=== PATIENT | female | born 1985 | race Caucasian/White ===

== ENCOUNTER 2019-04-27 22:56 | Emergency (ER) | payer OTHER ==
[~2019-04-27] VITALS: Ht 162.6 cm; Wt 127.0 kg
[2019-04-28] MEDS ORDERED: CITA20 PO (00:53)
[2019-04-28] MEDS ORDERED: Loratadine10 MG PO (00:54)
[2019-04-28] MEDS ORDERED: Provera10 MG PO (00:54)
[2019-04-28] MEDS ORDERED: Flonase 0.05% N16 GM (00:54)
[2019-04-28] MEDS ORDERED: THERA-D2000 UNIT PO (00:54)
[2019-04-28] MEDS ORDERED: MULTIPLE VITAM1 EACH PO (00:55)
[2019-04-28] MEDS ORDERED: MONTELUKAST SOD10 M1 PO (00:55)
[2019-04-28] MEDS ORDERED: MAGNESIUM250 MG PO (00:55)
[2019-04-28] MEDS ORDERED: BENZ100A PO (01:00)
[2019-04-28] MEDS ORDERED: Zithromax250 MG PO (01:00)
== END 2019-04-28 01:21 | disposition home or self-care (01) ==
LOC: ER 22:56
DX: J45.901 Unspecified asthma with (acute) exacerbation (principal); K21.9 Gastro-esophageal reflux disease without esophagitis; Z88.0 Allergy status to penicillin; Z88.8 Allergy status to other drugs, medicaments and biological substances
CPT/HCPCS: 71046; 94640; 99283-25

== ENCOUNTER → 2021-03-06 | Outpatient (CLI) | payer OTHER ==
[~2021-03-06] MED LIST: BENZ100A PO; CITA20 PO; Flonase 0.05% N16 GM; Loratadine10 MG PO; MAGNESIUM250 MG PO; MONTELUKAST SOD10 M1 PO; MULTIPLE VITAM1 EACH PO; Provera10 MG PO; THERA-D2000 UNIT PO; Zithromax250 MG PO
== END | disposition home or self-care (01) ==
LOC: LAB SHORT 09:39
DX: R30.9 Painful micturition, unspecified (principal)
CPT/HCPCS: 87077; 87086; 87186

== ENCOUNTER 2021-07-20 10:06 | Emergency (ER) | payer OTHER ==
[~2021-07-20] VITALS: Ht 162.6 cm; Wt 140.6 kg
[2021-07-20] MEDS ORDERED: [UNRECOGNIZED DRUG - OTHER] PO (10:33)
[2021-07-20] MEDS ORDERED: ZEBUTAL PO (12:07)
== END 2021-07-20 12:24 | disposition home or self-care (01) ==
LOC: ER 10:06
DX: G43.909 Migraine, unspecified, not intractable, without status migrainosus (principal); J45.909 Unspecified asthma, uncomplicated; Z88.0 Allergy status to penicillin; Z88.1 Allergy status to other antibiotic agents; Z88.8 Allergy status to other drugs, medicaments and biological substances
CPT/HCPCS: J1200; J1885; J2765; J7030

== ENCOUNTER 2021-12-19 20:19 | Emergency (ER) | payer OTHER ==
[~2021-12-19] VITALS: Ht 162.6 cm; Wt 140.6 kg
[~2021-12-19 20:19] MED LIST changes: +ZEBUTAL PO; +[UNRECOGNIZED DRUG - OTHER] PO
[2021-12-19] MEDS ORDERED: PRED20 PO (22:46)
[2021-12-19] MEDS ORDERED: NAPR500 PO (22:46)
== END 2021-12-19 23:04 | disposition home or self-care (01) ==
LOC: ER 20:19
DX: M77.12 Lateral epicondylitis, left elbow (principal); J45.909 Unspecified asthma, uncomplicated; K21.9 Gastro-esophageal reflux disease without esophagitis; Z88.0 Allergy status to penicillin; Z88.1 Allergy status to other antibiotic agents; Z88.8 Allergy status to other drugs, medicaments and biological substances; Z79.899 Other long term (current) drug therapy
CPT/HCPCS: 73080; A9270

== ENCOUNTER → 2023-04-07 | Outpatient (CLI) | payer OTHER ==
[~2023-04-07] MED LIST changes: +NAPR500 PO; +PRED20 PO
== END | disposition home or self-care (01) ==
LOC: LAB SHORT 17:42 → LAB 17:42
DX: R30.0 Dysuria (principal); R35.0 Frequency of micturition
CPT/HCPCS: 87077; 87086; 87186

== ENCOUNTER → 2023-11-19 | Outpatient (CLI) | payer OTHER ==
[2023-11-19 15:00] LABS: Bacterial Vaginosis PCR Negative (NEGATIVE); Candida Group, PCR NOT DETECTED (NOT DETECT); Candida glabrata-krusei, PCR NOT DETECTED (NOT DETECT)
[2023-11-19 15:34] LABS: Chlamydia Trachomatis Urine NOT DETECTED (NOT DETECT); Neisseria Gonorrhoea Urine NOT DETECTED (NOT DETECT)
== END ==
LOC: LAB 11:51 → LAB SHORT 11:51
PROVIDERS: Nurse Practitioner Family
DX: N92.6 Irregular menstruation, unspecified (principal)
CPT/HCPCS: 87481; 87491; 87591; 87661; 87801

== ENCOUNTER → 2023-12-09 | Outpatient (CLI) | payer OTHER ==
[2023-12-09 15:24] LABS: Bacterial Vaginosis PCR Negative (NEGATIVE); Candida Group, PCR NOT DETECTED (NOT DETECT); Candida glabrata-krusei, PCR NOT DETECTED (NOT DETECT)
== END ==
LOC: LAB SHORT 09:08 → LAB 09:08
PROVIDERS: Nurse Practitioner Family
DX: R39.15 Urgency of urination (principal)
CPT/HCPCS: 87481; 87661; 87801

== ENCOUNTER 2024-05-09 20:18 | Emergency (ER) | payer OTHER ==
[~2024-05-09] VITALS: Ht 160 cm; Wt 136.1 kg
[2024-05-09 20:28] VITALS: BP 144/105
[2024-05-09] MEDS ORDERED: Ketorolac Tromethamine 15mg Vial IV ONE (21:25)
[2024-05-09] MEDS ORDERED: DiphenhydrAMINE HCl 50 MG/ML 1ML Vial IV ONE (21:25)
[2024-05-09] MEDS ORDERED: Prochlorperazine Edisylate 10 mg Vial IV ONE (21:25)
[2024-05-09] MEDS ORDERED: NS 1,000 ML IV SCH (21:25)
== END 2024-05-09 22:30 | disposition home or self-care (01) ==
LOC: ER 20:18
DX: G43.909 Migraine, unspecified, not intractable, without status migrainosus (principal); K21.9 Gastro-esophageal reflux disease without esophagitis; Z88.0 Allergy status to penicillin; Z88.8 Allergy status to other drugs, medicaments and biological substances; Z79.899 Other long term (current) drug therapy; Z79.3 Long term (current) use of hormonal contraceptives
CPT/HCPCS: 96374; 96375; 99283-25; J0780; J1200; J1885; J7030

== ENCOUNTER 2024-05-21 02:06 | Emergency (ER) | payer OTHER ==
[~2024-05-21] VITALS: Ht 160 cm; Wt 136.1 kg
[2024-05-21 03:33] LABS: Source, Urine Clean Catch
[2024-05-21 03:40] LABS: Bilirubin, Urine Neg (Neg); Blood, Urine Neg (Neg); Glucose Qualitative, Urine Neg (Neg); Ketones, Urine Neg (Neg); Leukocyte Esterase, Urine 1+ (Neg); Nitrite, Urine Pos (Neg); Protein, Urine 2+ (Neg); Urobilinogen, Urine 1+ (Normal)
[2024-05-21 04:12] LABS: Influenza A, PCR NEGATIVE (NEGATIVE); Influenza B, PCR NEGATIVE (NEGATIVE); Resp Syncytial Virus, PCR NEGATIVE (NEGATIVE); SARS-Cov-2 (COVID-19) PCR, MMC NEGATIVE (NEGATIVE)
[2024-05-21 04:52] LABS: Appearance, Urine Clear (Clear); Color, Urine Yellow (P-Yellow)
[2024-05-21 04:53] LABS: Bacteria Mod /hpf; Red Blood Cells, Urine 0-2 /hpf (0-2); Squamous Epithelial Cells Mod /hpf (Few); White Blood Cells, Urine 0-2 /hpf (0-5)
[2024-05-21] MEDS ORDERED: Ondansetron 4 MG SoluTab SL ONE (05:35)
[2024-05-21] MEDS ORDERED: NS 1,000 ML IV SCH (06:00)
[2024-05-21 06:38] LABS: BASOPHILS ABSOLUTE AUTO 0.03 K/mm3 (0.00-0.23); BASOPHILS PERCENT AUTO 0 % (0-2); EOSINOPHILS ABSOLUTE AUTO 0.09 K/mm3 (0.00-0.68); EOSINOPHILS PERCENT AUTO 1 % (0-6); Hematocrit 46.1 % (33.0-51.0); Hemoglobin 14.8 g/dL (11.5-16.0); IMMATURE GRAN ABSOLUTE AUTO 0.06 K/mm3 (0.00-0.10); IMMATURE GRAN PERCENT AUTO 0 % (0-1); LYMPHOCYTES ABSOLUTE AUTO 1.21 K/mm3 (0.84-5.20); LYMPHOCYTES PERCENT AUTO 9 % (21-46); MONOCYTES ABSOLUTE AUTO 0.47 K/mm3 (0.16-1.47); MONOCYTES PERCENT AUTO 3 % (4-13); Mean Corpuscular HGB 25.3 pg (26.0-34.0); Mean Corpuscular HGB Conc 32.1 g/dL (31.5-36.5); Mean Corpuscular Volume 79 fL (80-100); Mean Platelet Volume 8.8 fL (9.1-12.4); NEUTROPHILS ABSOLUTE AUTO 12.35 K/mm3 (1.96-9.15); NEUTROPHILS PERCENT AUTO 87 % (41-73); Platelet Count 431 K/mm3 (150-400); RDW Coefficient Variation 14.8 % (11.7-14.2); RDW Standard Deviation 42.2 fL (35.1-46.3); Red Blood Cell Count 5.84 M/mm3 (3.80-5.20); White Blood Cell Count 14.21 K/mm3 (4.00-11.30)
[2024-05-21 07:00] LABS: Albumin, Blood 3.9 g/dL (3.4-5.0); Albumin/Globulin Ratio 0.9 (0.8-1.8); Bilirubin, Total 0.6 mg/dL (0.1-1.0); Bun/Creatinine Ratio 22.8 (12.0-20.0); Calcium, Blood 8.7 mg/dL (8.5-10.1); Creatinine, Blood 0.75 mg/dL (0.40-1.00); Globulin, Blood 4.3 g/dL (2.2-4.0); Total Protein, Blood 8.2 g/dL (6.4-8.2)
[2024-05-21] MEDS ORDERED: ONDA4ODT MM (07:04)
[2024-05-21] MEDS ORDERED: Ketorolac Tromethamine 30mg Vial IV ONE (07:05)
[2024-05-21 07:14] VITALS: BP 147/85
== END 2024-05-21 07:21 | disposition home or self-care (01) ==
LOC: ER 02:06
PROVIDERS: Emergency Medicine
DX: R10.13 Epigastric pain (principal); E86.0 Dehydration; R11.2 Nausea with vomiting, unspecified; D72.829 Elevated white blood cell count, unspecified; Z88.0 Allergy status to penicillin; Z88.1 Allergy status to other antibiotic agents; Z88.8 Allergy status to other drugs, medicaments and biological substances; Z79.899 Other long term (current) drug therapy; Z79.3 Long term (current) use of hormonal contraceptives
CPT/HCPCS: 0241U; 80053; 81001; 81025; 83605; 83690; 85025; 87086; 96374; 99284-25; A9270; J1885; J7030

== ENCOUNTER → 2024-06-14 | Outpatient (CLI) | payer OTHER ==
[~2024-06-14] MED LIST changes: +ONDA4ODT MM
[2024-06-15 11:08] LABS: Bacterial Vaginosis PCR Negative (NEGATIVE); Candida Group, PCR NOT DETECTED (NOT DETECT); Candida glabrata-krusei, PCR NOT DETECTED (NOT DETECT)
== END | disposition home or self-care (01) ==
LOC: LAB 15:35 → LAB SHORT 15:35
PROVIDERS: Nurse Practitioner Family
DX: R35.0 Frequency of micturition (principal)
CPT/HCPCS: 81515; 87086

== ENCOUNTER 2024-08-02 04:20 | Emergency (ER) | payer OTHER ==
[~2024-08-02] VITALS: Ht 162.6 cm; Wt 136.1 kg
[2024-08-02] MEDS ORDERED: Morphine Sulfate 4 MG/1 ML Injection IV ONE (08:05)
[2024-08-02] MEDS ORDERED: Ketorolac Tromethamine 30mg Vial IV ONE (08:05)
[2024-08-02 08:41] LABS: Source, Urine Clean Catch
[2024-08-02 08:44] LABS: BASOPHILS ABSOLUTE AUTO 0.03 K/mm3 (0.00-0.23); BASOPHILS PERCENT AUTO 0 % (0-2); EOSINOPHILS ABSOLUTE AUTO 0.19 K/mm3 (0.00-0.68); EOSINOPHILS PERCENT AUTO 3 % (0-6); Hematocrit 42.1 % (33.0-51.0); Hemoglobin 13.6 g/dL (11.5-16.0); IMMATURE GRAN ABSOLUTE AUTO 0.02 K/mm3 (0.00-0.10); IMMATURE GRAN PERCENT AUTO 0 % (0-1); LYMPHOCYTES ABSOLUTE AUTO 3.66 K/mm3 (0.84-5.20); LYMPHOCYTES PERCENT AUTO 47 % (21-46); MONOCYTES ABSOLUTE AUTO 0.53 K/mm3 (0.16-1.47); MONOCYTES PERCENT AUTO 7 % (4-13); Mean Corpuscular HGB 25.4 pg (26.0-34.0); Mean Corpuscular HGB Conc 32.3 g/dL (31.5-36.5); Mean Corpuscular Volume 79 fL (80-100); Mean Platelet Volume 9.3 fL (9.1-12.4); NEUTROPHILS ABSOLUTE AUTO 3.29 K/mm3 (1.96-9.15); NEUTROPHILS PERCENT AUTO 43 % (41-73); Platelet Count 373 K/mm3 (150-400); RDW Coefficient Variation 14.8 % (11.7-14.2); RDW Standard Deviation 42.1 fL (35.1-46.3); Red Blood Cell Count 5.35 M/mm3 (3.80-5.20); White Blood Cell Count 7.72 K/mm3 (4.00-11.30)
[2024-08-02 08:51] LABS: Appearance, Urine Clear (Clear); Bilirubin, Urine Neg (Neg); Blood, Urine Neg (Neg); Color, Urine Yellow (P-Yellow); Glucose Qualitative, Urine Neg (Neg); Ketones, Urine Neg (Neg); Leukocyte Esterase, Urine 1+ (Neg); Nitrite, Urine Neg (Neg); Protein, Urine 1+ (Neg); Urobilinogen, Urine NORM (Normal)
[2024-08-02 09:00] LABS: Albumin, Blood 3.5 g/dL (3.4-5.0); Albumin/Globulin Ratio 0.8 (0.8-1.8); Bilirubin, Total 0.2 mg/dL (0.1-1.0); Bun/Creatinine Ratio 21.6 (12.0-20.0); Calcium, Blood 8.2 mg/dL (8.5-10.1); Creatinine, Blood 0.69 mg/dL (0.40-1.00); Globulin, Blood 4.2 g/dL (2.2-4.0); Potassium, Blood 3.9 mmol/L (3.5-5.5); Total Protein, Blood 7.7 g/dL (6.4-8.2)
[2024-08-02 09:09] LABS: Bacteria Mod /hpf; Calcium Oxalate Crystals Mod /hpf; Red Blood Cells, Urine 0-2 /hpf (0-2); Squamous Epithelial Cells Few /hpf (Few)
[2024-08-02] MEDS ORDERED: MONT10T PO (09:16)
[2024-08-02] MEDS ORDERED: PROG100 PO (09:16)
[2024-08-02] MEDS ORDERED: DULO60 PO (09:16)
[2024-08-02] MEDS ORDERED: TRAZ100 PO (09:16)
[2024-08-02] MEDS ORDERED: TIZA4 PO (09:16)
[2024-08-02] MEDS ORDERED: PROP10 PO (09:16)
[2024-08-02] MEDS ORDERED: Robaxin750 MG (09:17)
[2024-08-02] MEDS ORDERED: MELO7.5 (09:17)
[2024-08-02] MEDS ORDERED: TOPI50 PO (09:17)
[2024-08-02] MEDS ORDERED: OXYC5 PO (11:29)
[2024-08-02 11:45] VITALS: BP 121/77
== END 2024-08-02 11:52 | disposition home or self-care (01) ==
LOC: ER 04:20
PROVIDERS: Emergency Medicine
DX: M54.50 Low back pain, unspecified (principal); R10.9 Unspecified abdominal pain; J45.909 Unspecified asthma, uncomplicated; K21.9 Gastro-esophageal reflux disease without esophagitis; G43.909 Migraine, unspecified, not intractable, without status migrainosus; Z88.0 Allergy status to penicillin; Z88.8 Allergy status to other drugs, medicaments and biological substances; Z79.52 Long term (current) use of systemic steroids; Z79.899 Other long term (current) drug therapy
CPT/HCPCS: 74176; 80053; 81001; 84703; 85025; 87086; 96374; 96375; 99284-25; J1885; J2270